=== PATIENT | male | born 1995 | race Caucasian/White ===

== ENCOUNTER 2022-07-27 11:25 | Emergency (ER) | payer SELFPAY ==
[2022-07-27 11:36] VITALS: BP 133/68; PULSE 87; RESP 18; TEMP 37.5; O2SAT 98; BMI 21.6
--- NOTE | 2022-07-27 12:01 | EXP.UTC ---
Discharge Plan Disposition Patient Disposition: Home, Self-Care Condition: Good Prescriptions Prescriptions: New amoxicillin-pot clavulanate 875-125 mg Tablet 1 tab PO Q12H Qty: 20 0RF ibuprofen [ibuprofen] 600 mg tablet 600 mg PO Q6HP PRN (Reason: Mild Pain) Qty: 30 0RF Referrals Follow up/Referrals: Michael Bailey MD [Primary Care Provider] - See instructions Activity Restrictions/Add. Instructions Additional Instructions/Restrictions: Take ibuprofen for pain or fever. I sent a prescription to your pharmacy. Take the antibiotics as directed. Follow up with your regular doctor. Follow up with your dentist. GO TO THE ER FOR ANY WORSENING SYMPTOMS Clinical Impressions Clinical Impression: Dental abscess Discharge ED Provider: Leander Munguia [facility] General Stated complaint: Back pain, leg pain, arm pain, mouth pain Mode of Arrival: Ambulatory Source of Information: Patient Limitations: No Limitations Time Seen by Provider: 07/27/22 12:01 Description of Symptoms (Recalled from Triage Doc. by RN): pt states he had dental work on the upper L of his mouth on 07/20. pt states his mouth is not improving and now he is having body aches. HEENT Symptoms (Recalled from RN notes): No Resp Symptoms (Recalled from RN notes): No Skin Symptoms (Recalled from RN notes): No MS Symptoms (Recalled from RN notes): Yes Functional Status (Recalled from RN notes): wnl History of Present Illness Provider Complaint: He states that he has had an infected tooth pulled about 1 week ago. He states that the area in his mouth is getting more swollen and painful. He also states that for the past 2 days he has began to feel bad and have chills. Related Data Previous Rx's Medication Instructions Recorded amoxicillin 875 mg-potassium 1 tab PO Q12H #20 tabs 07/27/22 clavulanate 125 mg tablet ibuprofen 600 mg tablet 600 mg PO Q6HP PRN Mild Pain #30 07/27/22 tabs Allergies Allergy/AdvReac Type Severity Reaction Status Date / Time No Known Allergies Allergy Verified 07/27/22 11:42 Worker's Comp Is this a Worker's Comp case?: No [facility] Disclaimer: The information contained in this section may have been updated after the patient was seen, as this information can be updated by other users. Social History Smoking Status: Never smoker alcohol intake: never current occupational status: employed Travel in the last 8 weeks: None ROS Obtained: Yes All systems reviewed & no additional complaints except as documented Constitutional Constitutional: Denies chills and Denies fever(s) Eyes Eyes: Denies eye discharge ENT Ears, Nose, Mouth, and Throat: Denies dizziness, Denies otalgia and Denies sore throat Cardiovascular Cardiovascular: Denies chest pain Respiratory Respiratory: Denies shortness of breath, Denies chest congestion, Denies cough, Denies stridor and Denies wheezing Gastrointestinal Gastrointestingal: Denies nausea or vomiting Musculoskeletal Musculoskeletal: Reports system reviewed and no additional complaints, except as documented and Denies arthralgias Integumentary/Breasts Skin/Breast: Denies rash Neurologic Neurologic: Denies dizziness and Denies paresthesias Allergic/Immunologic Allergic/Immunologic: Denies wheezing Physical Exam General General appearance: alert and in no apparent distress Head Head exam: atraumatic, normocephalic and normal inspection Eye Eye exam: Present normal appearance, PERRL and EOMI ENT ENT exam: Present mucous membranes moist, TM's normal bilaterally and normal external ear exam Expanded ENT Exam Nose exam: Absent sinus tenderness Nasal speculum exam: Bilateral: normal Mouth exam: Present normal external inspection; Absent drooling Teeth exam: Present dental tenderness # and gingival swelling Throat exam: Present normal inspection Neck Neck exam: Present normal inspection, full ROM and trachea midlin
[2022-07-27 12:17] VITALS: BP 133/68; PULSE 87; RESP 18; TEMP 37.5
== END 2022-07-27 12:17 | disposition home or self-care (01) ==
PROVIDERS: Emergency Provider Nurse Practitioner Family; PCP Family Medicine
DX: K04.7 Periapical abscess without sinus (principal); R50.9 Fever, unspecified; M79.18 Myalgia, other site
CPT/HCPCS: 99204; 99212; G0463

== ENCOUNTER 2022-07-27 18:56 | Emergency (ER) | payer SELFPAY ==
[2022-07-27 18:59] VITALS: BP 133/84; PULSE 107; RESP 17; TEMP 37.4; O2SAT 96; BMI 21.6
--- NOTE | 2022-07-27 19:18 | HMH.EDGENADL ---
Discharge Plan Disposition Patient Disposition: Home, Self-Care Prescriptions Prescriptions: No Action amoxicillin-pot clavulanate 875-125 mg Tablet 1 tab PO Q12H Qty: 20 0RF ibuprofen [ibuprofen] 600 mg tablet 600 mg PO Q6HP PRN (Reason: Mild Pain) Qty: 30 0RF Referrals Follow up/Referrals: Michael Sheppard MD [Primary Care Provider] - See instructions Activity Restrictions/Add. Instructions Additional Instructions/Restrictions: Continue antibiotics as prescribed. Follow-up with your primary care physician within the next few days. Return the emergency room for any worsening fever pain swelling or any other concerns within the next few days. Clinical Impressions Clinical Impression: Dental abscess Instructions Patient Instructions: DI for Dental Pain Discharge ED Provider: Godfrey Nixon General Adult HPI <Godfrey Nixon MD - Last Filed: 07/27/22 19:56> General Chief complaint: Dental/Oral Stated complaint: body aches, dental pain Time Seen by Provider: 07/27/22 19:00 Mode of Arrival: Ambulatory Limitations: No Limitations Description of Symptoms (Recalled from ER Triage Doc. by RN): pt to the ED with bodyaches, dental pain and a low grade fever. pt reports he had teeth pulled on sunday. pt was seen in the [facility] earlier today and given antibiotics for an abcess tooth but stated i feel like i should of had more tests History of Present Illness HPI narrative: 27-year-old male presents with body aches after having a dental infection. He has a low-grade fever as well. He reports having his teeth pulled on Sunday. He was seen in the urgent treatment center earlier today and given amoxicillin for dental pain however he says that he has more generalized weakness and chills now also was requesting some IV fluids and labs Related Data Previous Rx's Medication Instructions Recorded amoxicillin 875 mg-potassium 1 tab PO Q12H #20 tabs 07/27/22 clavulanate 125 mg tablet ibuprofen 600 mg tablet 600 mg PO Q6HP PRN Mild Pain #30 07/27/22 tabs Allergies Allergy/AdvReac Type Severity Reaction Status Date / Time No Known Allergies Allergy Verified 07/27/22 11:42 PFSH <Godfrey Nixon MD - Last Filed: 07/27/22 19:56> [facility] Disclaimer: The information contained in this section may have been updated after the patient was seen, as this information can be updated by other users. Social History (Updated 07/27/22 @ 12:14 by Leander Munguia APRN) Smoking Status: Never smoker alcohol intake: never current occupational status: employed Travel in the last 8 weeks: None <Godfrey Nixon MD - Last Filed: 07/27/22 19:56> ROS Obtained: Yes All systems reviewed & no additional complaints except as documented Constitutional Constitutional: Denies fatigue Eyes Eyes: Denies dry eyes ENT Ears, Nose, Mouth, and Throat: Denies dizziness Cardiovascular Cardiovascular: Denies diaphoresis and Denies dyspnea Respiratory Respiratory: Denies dyspnea Gastrointestinal Gastrointestingal: Denies coffee ground emesis Genitourinary Male Genitourinary: Denies flank pain Musculoskeletal Musculoskeletal: Denies joint stiffness Integumentary/Breasts Skin/Breast: Denies rash Neurologic Neurologic: Denies dizziness Endocrine Endocrine: Denies fatigue Hematologic/Lymphatic Henatologic/Lymphatic: Denies easy bleeding Allergic/Immunologic Allergic/Immunologic: Denies urticaria Physical Exam <Godfrey Nixon MD - Last Filed: 07/27/22 19:56> General General appearance: alert and in no apparent distress Eye Eye exam: Present PERRL and EOMI ENT ENT exam: Present normal exam, normal oropharynx and other (Left lower mandibular tooth with periapical swelling and redness) Neck Neck exam: Present normal inspection Chest Chest inspection: Present symmetric chest wall rise Respiratory Respiratory exam: Present normal lung sounds bilaterally; Absent respiratory distress Cardiovascular Cardiovascular exam: Present regular rate and
[2022-07-27 19:30] VITALS: BP 117/77; PULSE 92; RESP 18; O2SAT 99
[2022-07-27 20:10] LABS: Basophils % 0.4 % (0.1-2.0); Eosinophils # 0.1 K/mm3 (0.0-0.4); Eosinophils % 0.5 % (0.1-12.0); Hematocrit 45.6 % (42.0-52.0); Hemoglobin 15.3 g/dL (14.1-18.0); Lymphocytes # 1.8 K/mm3 (0.7-4.5); Lymphocytes % 20.3 % (10-50); Mean Corpuscular HGB Conc 33.7 g/dL (31.8-35.4); Mean Corpuscular Hemoglobin 30.1 pg (27.0-31.2); Mean Corpuscular Volume 89.5 fl (80-94); Mean Platelet Volume 7.8 fl (7.4-10.4); Monocytes # 0.8 K/mm3 (0.1-1.0); Monocytes % 9.4 % (1.7-9.3); Neutrophils % 69.4 % (37.0-80.0); Platelet Count 199 K/mm3 (142-424); Red Blood Count 5.09 M/mm3 (4.60-6.20); Red Cell Distribution Width 13.3 % (11.5-17.5); White Blood Count 8.7 K/mm3 (4.8-10.8)
[2022-07-27 20:14] LABS: Chloride 95 mmol/L (98-107); Potassium 3.8 mmoL/L (3.5-5.1); Sodium 140 mmol/L (136-145)
[2022-07-27 20:17] LABS: Alanine Aminotransferase 25 U/L (12-78); Albumin Level 3.9 g/dl (3.5-5.0); Albumin/Globulin Ratio 1.4 (1.1-1.8); Alkaline Phosphatase 49 U/L (38-126); Anion Gap 15.8 mEq/L (5-15); Aspartate Amino Transferase 31 U/L (17-59); Bilirubin,Total 0.2 mg/dl (0.2-1.3); Blood Urea Nitrogen 10 mg/dl (9-20); Carbon Dioxide 33 mmol/L (22.0-30.0); Creatinine Clearance Estimated 123 mL/min (50-200); Estimated Glomerular Filt Rate 116 ml/min (>60); GFR (African American) 140 ML/MIN (>60); Globulin 2.7 g/dL (1.3-3.2); Total Protein,Serum 6.6 g/dl (6.3-8.2)
[2022-07-27 20:18] LABS: Calcium 9.1 mg/dl (8.4-10.2); Glucose 132 mg/dl (74-100)
--- NOTE | 2022-07-27 20:18 | PC.NURSE ---
patient given blanket, no other needs
[2022-07-27 20:32] VITALS: BP 139/73; PULSE 94; RESP 18; O2SAT 100
[2022-07-27 21:02] VITALS: BP 140/70; PULSE 89; RESP 18; TEMP 36.6; O2SAT 99
== END 2022-07-27 21:08 | disposition home or self-care (01) ==
PROVIDERS: Emergency Provider Emergency Medicine; PCP Family Medicine
DX: R50.82 Postprocedural fever (principal); R53.1 Weakness
CPT/HCPCS: 80053; 85025; 96361; 96374; 96375; 99284; J0696

== ENCOUNTER → 2022-11-06 15:31 | Outpatient (CLI) | payer SELFPAY | PROVIDERS: PCP Family Medicine; Visit Provider Obstetrics & Gynecology | DX: Z01.83 Encounter for blood typing (principal) | CPT/HCPCS: 36415; 86900; 86901 ==